=== PATIENT | female | born 1945 | race Caucasian/White ===

== ENCOUNTER 2018-03-20 21:28 | Inpatient (IN) | payer MEDICARE ==
[~2018-03-20] VITALS: Ht 157.5 cm; Wt 47.6 kg
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
--- NOTE | ~2018-03-20 | PR ---
[place], [place] PROGRESS NOTE NAME: JENNIFER FAULKNER UNIT #: [id number] ROOM: 315 DOCTOR: RAYMOND DIANA MD BIRTHDATE: [birth year] DOS: 03/22/2018 SUBJECTIVE: Patient seen and spoke with the staff. Per staff, patient is doing well. No behavior problems or issues. Medication compliant. Patient was pleasant and cooperative. She reports doing well. Denied any depressed mood or hopelessness. Denied any other neurovegetative signs and symptoms of depression. She is taking her medication regularly and did not have any side effect from the medication. MENTAL STATUS EXAMINATION: Pleasant and cooperative. Described her mood as "okay." Affect flat, guarded. Thought process goal directed. No flight of ideas, loosening of association. She denied auditory or visual hallucination. No delusion or paranoia noted. She denied suicidal ideation, intent or plan. She also denied homicidal ideation, intent or plan. PLAN: 1. Continue current medication and care. 2. Continue redirection. 3. Supportive care. 4. Final medication management and discharge plan by the regular team. RAYMOND DIANA MD CM:PNTRANS [id number] RAYMOND DIANA MD 03/23/18 1613 interface
--- NOTE | ~2018-03-20 | DS ---
[place], [place] DISCHARGE SUMMARY NAME: JENNIFER FAULKNER UNIT #: [id number] ROOM: 315 DOCTOR: WALKER CLINTON MD BIRTHDATE: [birth year] DOS: 03/24/2018 CHIEF COMPLAINT: "This is all a misunderstanding. I don't need to be here." HISTORY OF PRESENT ILLNESS: This is a 72-year-old white female who was sent here on an involuntary basis from [facility] emergency room. The patient stated that she had fallen at home and was having difficulty getting up, so she did call 911 to have an ambulance come and take her to the hospital to be evaluated. When she was in the emergency room to be evaluated, she stated that she became very irate because she was being detained there and just needed some help to get up. In her anger, she began to be very irrational with the physician there, who ultimately sent her here on an involuntary basis, feeling that she was irrational and represented a significant risk of harm to herself despite the fact that the patient did not voice any suicidal thoughts, homicidal thoughts or any self-injurious thoughts. The patient is admitted to further evaluate her need for inpatient stabilization and to determine whether or that this was the least restrictive environment for her. PAST MEDICAL HISTORY: Remarkable for significant pain due to osteoarthritis and one previous psychiatric admission when she was younger due to per her report agoraphobia. The patient states that she has never had any other psychiatric followup since that initial psych hospitalization when she was a young woman. SOCIAL HISTORY: The patient denies any use of alcohol, cigarettes or illicit drugs. SUMMARY OF THE HOSPITAL COURSE: The patient was admitted to the unit where she was found to be in a relatively euthymic state. She did endorse though some increased stressors with poor sleep and appetite, but consistently denied suicidal thoughts, homicidal thoughts or any self-injurious thoughts. Dr. Arias, who was covering for me during the weekend that she was admitted, did start her on Remeron, believing that there was not enough of a depressive symptomatology here that medication was warranted. She continued to voice; however, that she did not feel that she needed to be here in the hospital. She consistently voiced positive plans for the future and felt that she could easily return home to have outpatient followup. Because the patient was compliant with all aspects of her care, did not exhibit significant mood lability, agitation or aggression, she was ultimately discharged back home on March 24, to have outpatient followup by her provider. MENTAL STATUS AT DISCHARGE: The patient is alert and oriented. Mood was fairly euthymic. Affect appropriate. There was no caleb, hypomania or psychosis. No overt auditory or visual hallucinations were present. No delusions were voiced. No paranoia was present. Short, intermediate, and long-term memory were fully intact. FINAL DIAGNOSIS: Major depression, recurrent, without psychotic features. PLAN: I will continue her on Remeron 15 mg at bedtime. Scripts were e-scribed [place], [place] DISCHARGE SUMMARY NAME: JENNIFER FAULKNER UNIT #: [id number] ROOM: [facility] DOCTOR: WALKER CLINTON MD BIRTHDATE: [birth year] to [facility]. She will have further followup in the community per social media marketing specialist. She was discharged medically stable, psychiatrically stable and her biopsychosocial needs were adequately being met by the community at large. WALKER CLINTON MD CM:SERJIO [id number] WALKER CLINTON MD 03/24/18 1028 interface
--- NOTE | ~2018-03-20 | PR ---
[place], [place] PROGRESS NOTE NAME: JENNIFER FAULKNER UNIT #: [id number] ROOM: 315 DOCTOR: WALKER CLINTON MD BIRTHDATE: [birth year] DOS: 03/23/2018 CHIEF COMPLAINT: "Oh, please I don't need to be here. I am not crazy." SUMMARY OF THE VISIT: The patient was interviewed in her room. She was sitting on her bed waiting for me. She engaged readily in conversation and reported to me the events that occurred that led to her ultimate hospitalization here. Per her portrayal of the situation, it sounds as though things were done hastily as she is fairly euthymic and denies any previous psychiatric history other than a history of agoraphobia very long ago. She has not been hospitalized since nor has she seen a mental health provider for many, many years. She was mainly focused on what she needed to be able to leave the hospital, reporting to me that she is sleeping well, eating well and feels well other than she is frustrated by her continued stay here. MENTAL STATUS: She is alert and oriented. Mood does seem to be fairly euthymic with some anxious overtones with the anxiety being related to the continued stay here. There is no caleb or hypomania. There are no overt auditory or visual hallucinations, delusions or paranoia. She denies suicidal thoughts, homicidal thoughts or any self-injurious thoughts and memory for the most part is intact. PLAN: Screening examination show a vitamin D level that is low at 22.8. So, I will augment with vitamin D 50,000 International Units weekly. We will continue to engage her in individual and frazier milieu activity, set up aftercare and continue to assess for psychosis and lethality. Once we feel that these issues have been totally resolved, we will discharge back to the community. WALKER CLINTON MD CM:PNTRANS 32 WALKER CLINTON MD 03/23/182230 interface
[2018-03-20] MEDS ORDERED: CLONAZEPAM0.5 M2 PO (22:53)
[2018-03-20] MEDS ORDERED: CARISOPRODOL350 M1 PO (22:55)
[2018-03-20] MEDS ORDERED: PERCOCET 10-321 EACH PO (22:55)
[2018-03-21 01:17] VITALS: BP 138/75
[2018-03-21 07:43] VITALS: BP 126/72
[2018-03-21 08:08] LABS: BASO % 0.6 % (0.0-1.0); EOS # 0.1 10*3/uL (0.0-0.4); EOS % 1.9 % (1.0-4.0); HEMATOCRIT 29.4 % (37.0-47.0); HEMOGLOBIN 9.5 g/dl (12.0-16.0); MEAN CELL VOLUME 93.9 fl (81.0-99.0); MEAN CORPUSCULAR HGB 30.4 pg (27.0-31.0); MEAN CORPUSCULAR HGB CONC 32.3 g/dl (33.0-37.0); MEAN PLATELET VOLUME 9.4 fl (9.6-12.3); MONO # 0.3 10*3/uL (0.1-1.0); MONO % 5.1 % (3.0-9.0); NEUT # 3.9 10*3/uL (2.3-7.9); NEUT % 73.2 % (47.0-73.0); PLATELET COUNT AUTOMATED 410 10*3/uL (130-400); RED BLOOD COUNT 3.13 10*6/uL (4.10-5.10); RED CELL DISTRI WIDTH 14.2 % (0-14.5); WHITE BLOOD COUNT 5.3 10*3/uL (4.8-10.8)
[2018-03-21 08:37] LABS: ALBUMIN 3.2 gm/dl (3.1-4.5); BUN 15 mg/dl (7-24); CHLORIDE 109 mmol/L (98-107); POTASSIUM 3.7 mmol/L (3.5-5.1); SODIUM 142 mmol/L (136-145)
[2018-03-21 08:42] LABS: ALKALINE PHOSPHATASE 67 U/L (45-117); CHOLESTEROL 157 mg/dL (<200); HDL CHOLESTEROL 44 mg/dl (40-60); LDL CHOLESTEROL 95 mg/dL (9-159); SGOT/AST 17 IU/L (3-35); SGPT/ALT 15 U/L (12-78); TOTAL PROTEIN 7.4 gm/dL (6.4-8.2); TRIGLYCERIDES 88 mg/dl (<150); VLDL CHOLESTEROL 18 mg/dL (6-40)
[2018-03-21 10:16] LABS: VITAMIN D, 25-HYDROXY 22.8 ng/mL (30-100)
[2018-03-22 07:48] VITALS: BP 137/61
[2018-03-22 20:00] VITALS: BP 152/72
[2018-03-23 08:14] VITALS: BP 130/78
[2018-03-23 20:00] VITALS: BP 136/72
[2018-03-24 08:03] VITALS: BP 157/78
[2018-03-24] MEDS ORDERED: MIRTAZAPINE15 M2 PO (09:05)
== END 2018-03-24 12:30 | disposition home or self-care (01) | DRG 885 ==
LOC: 3N 21:28
PROVIDERS: Psychiatry & Neurology Psychiatry
DX: F33.3 Major depressive disorder, recurrent, severe with psychotic symptoms (principal); F09 Unspecified mental disorder due to known physiological condition; G89.4 Chronic pain syndrome; M19.90 Unspecified osteoarthritis, unspecified site; F41.9 Anxiety disorder, unspecified; Z90.49 Acquired absence of other specified parts of digestive tract; Z72.0 Tobacco use; Z82.61 Family history of arthritis; Z84.1 Family history of disorders of kidney and ureter; Z91.81 History of falling; Z84.89 Family history of other specified conditions; Z79.899 Other long term (current) drug therapy; Z71.6 Tobacco abuse counseling; Z86.59 Personal history of other mental and behavioral disorders